=== PATIENT | male | born 1945 | race Caucasian/White ===

== ENCOUNTER 2016-11-23 06:11 | Day surgery (SDC) | payer BC ==
[2016-11-13 18:26] LABS: HEMOGLOBIN 13.9 g/dL (13.6-17.8)
[~2016-11-23 06:11] MED LIST: ACCOLATE10 MG PO; ADVAIR115P INH; ADVIL PO; CLARIT10 PO; COLCRYS0.6 MG PO; DURA50 TOP; MULTIPLE VIT PO; NORCO1 TAB PO; PROVHFA INH; T300 PO
== END 2016-11-23 23:59 | disposition home health service (06) ==
LOC: SDC 06:11
PROVIDERS: Ophthalmology
PROC: 08RJ3JZ Replacement of Right Lens with Synthetic Substitute, Percutaneous Approach (ICD-10-PCS; principal; 2016-11-23 07:45)
DX: H25.11 Age-related nuclear cataract, right eye (principal); G43.909 Migraine, unspecified, not intractable, without status migrainosus; J45.909 Unspecified asthma, uncomplicated; M19.90 Unspecified osteoarthritis, unspecified site; Z79.899 Other long term (current) drug therapy; Z87.891 Personal history of nicotine dependence; Z98.890 Other specified postprocedural states
CPT/HCPCS: 80048; 85014; 85018; 93005; C1780; J2250; J2405; J3010